=== PATIENT | male | born 1980 | race Two or more races ===

== ENCOUNTER 2019-05-23 03:51 | Emergency (ER) | payer MEDICAID ==
--- NOTE | 2019-05-23 04:26 | EDM.PDOC ---
ED HPI GENERAL MEDICAL PROBLEM - General Chief Complaint: ENT Problem Stated Complaint: FLU SYMPTOMS- SORE THROAT, COUGH Time Seen by Provider: 05/23/19 04:01 Source of Information: Reports: Patient History Limitations: Reports: No Limitations - History of Present Illness INITIAL COMMENTS - FREE TEXT/NARRATIVE: HISTORY OF PRESENT ILLNESS: Patient is a 39-year-old male who reports 3-day history of sore throat which he rates as 3 out of 10 in severity worse with swallowing. Has mild cough. No dyspnea or hemoptysis. Denies any fevers or chills. No chest pain or abdominal pain. No urinary symptoms. No known contact with strep. Denies any neck stiffness or rash. REVIEW OF SYSTEMS: Other than the symptoms associated with the present events, the following is reported with regard to recent health: General: (-) fever. HENT: (-) congestion. Respiratory: (-) cough. Cardiovascular: (-) chest pain. GI: (-) abdominal pain. : (-) urinary complaints. Musculoskeletal: (-) other aches or pains. Endocrine: (-) generalized weakness. Neurological: (-) localized weakness. Skin: (-) rash PAST MEDICAL HISTORY: reviewed as per nursing notes SOCIAL HISTORY: reviewed as per nursing notes, MEDICATIONS: Per nurse's note ALLERGIES: Per nurse's note, reviewed by me PHYSICAL EXAMINATION: GENERALIZED APPEARANCE: well developed, well nourished in mild distress VITAL SIGNS: Per nurse's note, reviewed by me SKIN: Warm, dry; (-) cyanosis; (-) rash. HEAD: (-) scalp swelling, (-) tenderness. EYES: (-) conjunctival pallor, (-) scleral icterus. ENMT: (-) stridor; mucous membranes moist. Pharyngeal erythema. No exudate. Uvula midline. No trismus. No phonation changes. Airway patent. NECK: (-) tenderness, (-) stiffness, CHEST AND RESPIRATORY: (-) rales, (-) rhonchi, (-) wheezes; breath sounds equal bilaterally. HEART AND CARDIOVASCULAR: (-) irregularity; (-) murmur, (-) gallop. ABDOMEN AND GI: Soft; (-) tenderness, (-) guarding, (-) rebound, (-) palpable masses, EXTREMITIES: (-) deformity, (-) edema. NEURO AND PSYCH: Alert. Cranial nerves grossly intact; strength symmetric. gait steady DIAGNOSTICS: strep positive EMERGENCY DEPARTMENT COURSE AND TREATMENT: Patient's condition remained stable during Emergency Department evaluation. Based on history, physical exam, and diagnostic evaluation, the patient has symptoms consistent with acute strep pharyngitis. There is no obvious swelling of the peritonsillar area or abscess. The airway appears patent and respiratory pattern is normal. The patient has no trismus and is tolerating oral food and fluid. I felt that outpatient management with close followup by the patient's primary care provider in 1-2 days was appropriate. The patient's questions were answered, and discharge precautions and reasons to return to the clinic were discussed. The patient understands to return to the ED if symptoms do not improve as discussed, or if symptoms worsen. PLAN AND FOLLOW-UP: Patient received written and verbal instructions regarding this condition. Return to ED immediately with any new or worsening symptoms. Follow up to be arranged by patient with pcp in 1-2 days for further evaluation. Given discharge precautions. patient expressed verbal understanding. - Related Data Allergies Allergy/AdvReac Type Severity Reaction Status Date / Time Penicillins Allergy Other Verified 05/23/19 04:02 Home Meds: Home Meds Azithromycin 250 mg PO DAILY 5 Days #6 tablet 05/23/19 [Rx] Past Medical History - Past Health History Medical/Surgical History: Denies Medical/Surgical History - Infectious Disease History Infectious Disease History: Reports: Chicken Pox Social & Family History - Family History Family Medical History: Noncontributory - Tobacco Use Smoking Status *Q: Never Smoker - Recreational Drug Use Recreational Drug Use: No ED ROS GENERAL - Review of Systems Review Of Systems: See Below (see dictation) ED EXAM, GENERAL - Physical Exam Exam: See Below (see dictation) Course - Vital Signs Last Recorded V/S: Last Vital Signs Temp 97.8 F 05/23/19 04:02 Pulse 88 05/23/19 04:02 Resp 18 05/23/19 04:02 BP 138/88 05/23/19 04:02 Pulse Ox 97 05/23/19 04:02 Departure - Departure Time of Disposition: 04:23 Disposition: Home, Self-Care 01 Condition: Good Clinical Impression: Strep pharyngitis - Discharge Information *PRESCRIPTION DRUG MONITORING PROGRAM REVIEWED*: Not Applicable *COPY OF PRESCRIPTION DRUG MONITORING REPORT IN PATIENT ABNER: Not Applicable Instructions: Strep Throat Referrals: PCP,None [Primary Care Provider] - Benton Maher [Ordering Only Provider] - 2 Days Additional Instructions: The following information is given to patients seen in the emergency department who are being discharged to home. This information is to outline your options for follow-up care. We provide all patients seen in our emergency department with a follow-up referral. The need for follow-up, as well as the timing and circumstances, are variable depending upon the specifics of your emergency department visit. If you don't have a primary care physician on staff, we will provide you with a referral. We always advise you to contact your personal physician following an emergency department visit to inform them of the circumstance of the visit and for follow-up with them and/or the need for any referrals to a consulting specialist. The emergency department will also refer you to a specialist when appropriate. This referral assures that you have the opportunity for follow-up care with a specialist. All of these measure are taken in an effort to provide you with optimal care, which includes your follow-up. Under all circumstances we always encourage you to contact your private physician who remains a resource for coordinating your care. When calling for follow-up care, please make the office aware that this follow-up is from your recent emergency room visit. If for any reason you are refused follow-up, please contact the [facility] Emergency Department at and asked to speak to the emergency department charge nurse. Sepsis Event Note - Evaluation Sepsis Screening Result: No Definite Risk - Focused Exam Vital Signs: Vital Signs Temp Pulse Resp BP Pulse Ox 05/23/19 04:02 97.8 F 88 18 138/88 97 Date Exam was Performed: 05/23/19 Time Exam was Performed: 04:21
== END 2019-05-23 04:37 | disposition home or self-care (01) ==
LOC: MW.ED 03:51
DX: J02.0 Streptococcal pharyngitis (principal); Z88.0 Allergy status to penicillin
CPT/HCPCS: 87880-QW; 99283

== ENCOUNTER 2020-12-10 12:04 | Emergency (ER) | payer MEDICAID ==
[2020-12-10] MEDS ORDERED: Sodium Chloride 0.9% 1,000 ML IV ONE (12:13)
--- NOTE | 2020-12-10 12:13 | EDM.PDOC ---
ED HPI GENERAL MEDICAL PROBLEM - General Chief Complaint: Abdominal Pain Stated Complaint: RIGHT SIDE PAIN DIZZY Time Seen by Provider: 12/10/20 12:13 Source of Information: Reports: Patient History Limitations: Reports: No Limitations - History of Present Illness INITIAL COMMENTS - FREE TEXT/NARRATIVE: HISTORY AND PHYSICAL: History of present illness: Patient is a 40-year-old male who presents to the emergency room with complaints of right lower quadrant pain. He initially was seen at the walk-in clinic but was recommended to come to the emergency room to rule out appendicitis. Patient denies any fever, chills, headache, change in vision, syncope or near syncope. Denies any chest pain, back pain, shortness of breath or cough. Denies any nausea, vomiting, diarrhea, constipation or dysuria. Has not noted any blood in urine or stool. Patient has been eating and drinking appropriately. No recent travel or sick contacts. Review of systems: As per history of present illness and below otherwise all systems reviewed and negative. Past medical history: As per history of present illness and as reviewed below otherwise noncontributory. Surgical history: As per history of present illness and as reviewed below otherwise noncontributory. Social history: See social history for further information Family history: As per history of present illness and as reviewed below otherwise noncontributory. Physical exam: General: Well developed and well nourished 40-year-old male. Alert and orientated x 3. Nontoxic in appearance and in no acute distress. Vital signs are stable and have been reviewed by me. Nursing notes were reviewed. HEENT: Atraumatic, normocephalic, pupils equal and reactive bilaterally, negative for conjunctival pallor or scleral icterus, mucous membranes moist, trachea midline. No drooling or trismus noted. No meningeal signs. No hot potato voice noted. Lungs: Clear to auscultation bilaterally. No wheezes, rales, or rhonchi. Chest nontender. Normal work of breathing, no accessory muscles used. Heart: S1S2, regular rate and rhythm without overt murmur, gallops, or rubs. No JVD. No peripheral edema Abdomen: Soft, nondistended, right lower quadrant and left lower quadrant tenderness. No rebound tenderness. Normoactive bowel sounds. Negative for masses or costovertebral tenderness. Skin: Intact, warm, dry. No lesions or rashes noted. Hematologic: No petechiae or purpra. Mucosa appropriate color and normal nail bed color and refill. Extremities: Atraumatic, moves all extremities per self without difficulty or deficits, negative for cords or calf pain. Neurovascular unremarkable. Neuro: Awake, alert, oriented. Cranial nerves II through XII unremarkable. Cerebellum unremarkable. Motor and sensory unremarkable throughout. Exam n onfocal. Psychiatric: Mood and affect are appropriate. Normal thought process. Answering questions appropriately. Please note that the patient was seen and evaluated during the 2019 SARS-CoV-2 novel coronavirus pandemic period. Community viral transmission is ongoing at time of this encounter and the emergency department is operating under pandemic response procedures. Medical Decision Making: Patient is a 40-year-old male who presents to the emergency room with complaints of right lower quadrant pain. Initially he had gone to the clinic, they referred him to the emergency room to rule out appendicitis. Patient does have left lower quadrant and right lower quadrant tenderness. No rebound tenderness. We will do basic lab work and likely a CT scan to rule out appendicitis. Patient's lab work is unremarkable. CT shows normal appearing appendix no inflammatory process right lower quadrant. No urinary tract stones or hydronephrosis. Colonic fecal retention involving the ascending colon. I have talked with the patient about today's findings, in addition to providing specific details for plan of care. Reassessment at the time of disposition demonstrates that the patient is in no acute distress. The patient is stable for discharge, counseling was provided and we discussed in great detail signs and symptoms that would prompt them to return to the Emergency Department. Medication, follow up and supportive care measures were reviewed and discussed. Voices understanding and is agreeable to plan of care. Denies any further questions or concerns at this time. Diagnostics: CBC, CMP, UA, lipase, CT abdomen and pelvis Therapeutics: IV fluid Prescription: None Impression: Abdominal pain Plan: 1. You were evaluated today on an emergent basis. Your lab work is normal. CT shows the appendix is normal as well. You do have a moderate amount of stool that can be causing your pain. Please take an [id number] laxative or start adding MiraLAX to your regiment to help have a bowel movement. 2. You can alternate Tylenol and ibuprofen as needed for pain and fever management. 3. We encourage you to follow up with your primary care provider and/or recommended specialist in the next few days for re-evaluation and further care/management. 4. If your symptoms should worsen, new symptoms develop or any of the signs and symptoms we discussed should arise please return to the emergency room or call 911 (if needed). Definitive disposition and diagnosis as appropriate pending reevaluation and review of above. - Related Data Allergies Allergy/AdvReac Type Severity Reaction Status Date / Time Penicillins Allergy Other Verified 12/10/20 12:22 Home Meds: Home Meds . [No Known Home Meds] 12/10/20 [History] Past Medical History - Past Health History Medical/Surgical History: Denies Medical/Surgical History - Infectious Disease History Infectious Disease History: Reports: Chicken Pox Social & Family History - Family History Family Medical History: No Pertinent Family History ED ROS GENERAL - Review of Systems Review Of Systems: Comprehensive ROS is negative, except as noted in HPI. ED EXAM, GI/ABD - Physical Exam Exam: See Below (See dictation) Course - Vital Signs Last Recorded V/S: Last Vital Signs Temp 97.2 F 12/10/20 12:19 Pulse 57 L 12/10/20 13:20 Resp 16 12/10/20 13:20 BP 120/71 12/10/20 13:20 Pulse Ox 97 12/10/20 13:20 - Orders/Labs/Meds Labs: Laboratory Tests 12/10/20 12/10/20 12/10/20 Range/Units 12:31 12:31 12:31 WBC 6.38 (4.0-11.0) K/uL RBC 4.84 (4.50-5.90) M/uL Hgb 16.4 (13.0-17.0) g/dL Hct 45.5 (38.0-50.0) % MCV 94.0 (80.0-98.0) fL MCH 33.9 H (27.0-32.0) pg MCHC 36.0 (31.0-37.0) g/dL RDW Std Deviation 43.3 (28.0-62.0) fl RDW Coeff of Rusty 13 (11.0-15.0) % Plt Count 185 (150-400) K/uL MPV 10.00 (7.40-12.00) fL Neut % (Auto) 66.1 (48.0-80.0) % Lymph % (Auto) 27.3 (16.0-40.0) % Desha % (Auto) 5.0 (0.0-15.0) % Eos % (Auto) 1.4 (0.0-7.0) % Baso % (Auto) 0.2 (0.0-1.5) % Neut # (Auto) 4.2 (1.4-5.7) K/uL Lymph # (Auto) 1.7 (0.6-2.4) K/uL Desha # (Auto) 0.3 (0.0-0.8) K/uL Eos # (Auto) 0.1 (0.0-0.7) K/uL Baso # (Auto) 0.0 (0.0-0.1) K/uL Nucleated RBC % 0.0 /100WBC Nucleated RBCs # 0 K/uL Sodium 138 (136-148) mmol/L Potassium 4.0 (3.5-5.1) mmol/L Chloride 100 (98-107) mmol/L Carbon Dioxide 28.3 (21.0-32.0) mmol/L BUN 15 (7.0-18.0) mg/dL Creatinine 1.0 (0.8-1.3) mg/dL Est Cr Clr Drug Dosing 99.18 mL/min Estimated GFR (MDRD) > 60.0 ml/min Glucose 87 (74-106) mg/dL Calcium 8.6 (8.5-10.1) mg/dL Total Bilirubin 1.0 (0.2-1.0) mg/dL AST 29 (15-37) IU/L ALT 68 H (14-63) IU/L Alkaline Phosphatase 56 (46-116) U/L Total Protein 8.2 (6.4-8.2) g/dL Albumin 4.2 (3.4-5.0) g/dL Globulin 4.0 (2.6-4.0) g/dL Albumin/Globulin Ratio 1.0 (0.9-1.6) Lipase 85 (73-393) U/L Urine Color YELLOW Urine Appearance CLEAR Urine pH 6.5 (5.0-8.0) Ur Specific Kathleen 1.020 (1.001-1.035) Urine Protein NEGATIVE (NEGATIVE) mg/dL Urine Glucose (UA) NEGATIVE (NEGATIVE) mg/dL Urine Ketones NEGATIVE (NEGATIVE) mg/dL Urine Occult Blood NEGATIVE (NEGATIVE) Urine Nitrite NEGATIVE (NEGATIVE) Urine Bilirubin NEGATIVE (NEGATIVE) Urine Urobilinogen 1.0 (<2.0) EU/dL Ur Leukocyte Esterase NEGATIVE (NEGATIVE) Meds: Medications Discontinued Medications Generic Name Dose Route Start Last Admin Trade Name Randolphq PRN Reason Stop Dose Admin Sodium Chloride 1,000 mls @ 999 mls/hr 12/10/20 12:13 12/10/20 12:32 Normal Saline IV 12/10/20 13:13 999 mls/hr STAT ONE Administration Iopamidol 100 ml 12/10/20 13:41 12/10/20 13:42 Iopamidol 755 Mg/Ml 500 Ml Multipack Bottle IVPUSH 12/10/20 13:42 100 ml ONETIME STA Administration Ketorolac Tromethamine 30 mg 12/10/20 13:09 12/10/20 13:16 Ketorolac 30 Mg/Ml Sdv IVPUSH 12/10/20 13:10 30 mg ONETIME ONE Administration Ondansetron HCl 4 mg 12/10/20 13:09 12/10/20 13:17 Ondansetron 4 Mg/2 Ml Sdv IVPUSH 12/10/20 13:10 4 mg ONETIME ONE Administration Departure - Departure Time of Disposition: 14:47 Disposition: Home, Self-Care 01 Clinical Impression: Abdominal pain Qualifiers: Abdominal location: right lower quadrant Qualified Code(s): R10.31 - Right lower quadrant pain - Discharge Information Instructions: Abdominal Pain, Adult, [id number]-[id number] Referrals: Haydee Summers NP [Primary Care Provider] - Forms: ED Department Discharge Additional Instructions: The following information is given to patients seen in the emergency department who are being discharged to home. This information is to outline your options for follow-up care. We provide all patients seen in our emergency department with a follow-up referral. The need for follow-up, as well as the timing and circumstances, are variable depending upon the specifics of your emergency department visit. If you don't have a primary care physician on staff, we will provide you with a referral. We always advise you to contact your personal physician following an emergency department visit to inform them of the circumstance of the visit and for follow-up with them and/or the need for any referrals to a consulting specialist. The emergency department will also refer you to a specialist when appropriate. This referral assures that you have the opportunity for follow-up care with a specialist. All of these measure are taken in an effort to provide you with optimal care, which includes your follow-up. Under all circumstances we always encourage you to contact your private physician who remains a resource for coordinating your care. When calling for follow-up care, please make the office aware that this follow-up is from your recent emergency room visit. If for any reason you are refused follow-up, please contact the [facility] Emergency Department at and asked to speak to the emergency department charge nurse. [facility] [address] [place] [id number] [place] [address] Thank you for choosing the [facility] emergency department in [place] for your medical needs today. It was a pleasure caring for you. Today you were seen in the emergency department for abdominal pain. 1. You were evaluated today on an emergent basis. Your lab work is normal. CT shows the appendix is normal as well. You do have a moderate amount of stool that can be causing your pain. Please take an [id number] laxative or start adding MiraLAX to your regiment to help have a bowel movement. 2. You can alternate Tylenol and ibuprofen as needed for pain and fever management. 3. We encourage you to follow up with your primary care provider and/or recommended specialist in the next few days for re-evaluation and further care/management. 4. If your symptoms should worsen, new symptoms develop or any of the signs and symptoms we discussed should arise please return to the emergency room or call 911 (if needed). Sepsis Event Note (ED) - Focused Exam Vital Signs: Vital Signs Temp Pulse Resp BP Pulse Ox 12/10/20 13:20 57 L 16 120/71 97 12/10/20 12:19 97.2 F 65 16 134/78 99
[2020-12-10] MEDS ORDERED: Ketorolac 30 MG/ML SDV IVPUSH ONE (13:09)
[2020-12-10] MEDS ORDERED: Ondansetron 4 MG/2 ML SDV IVPUSH ONE (13:09)
[2020-12-10 13:16] LABS: BLOOD UREA NITROGEN,BUN 15 mg/dL (7.0-18.0); CARBON DIOXIDE,CO2 28.3 mmol/L (21.0-32.0); CHLORIDE,CL 100 mmol/L (98-107); GLUCOSE RANDOM 87 mg/dL (74-106); LIPASE 85 U/L (73-393); SODIUM,NA 138 mmol/L (136-148)
[2020-12-10] MEDS ORDERED: Iopamidol 755 MG/ML 500 ML Multipack Bottle IVPUSH STA (13:41)
--- NOTE | 2020-12-10 14:43 | CT ---
INDICATION: Right upper quadrant pain TECHNIQUE: CT abdomen and pelvis acquired with IV contrast. 100 cc Isovue 370 COMPARISON: None FINDINGS: Lower chest: Unremarkable. Liver: Unremarkable. Spleen: Unremarkable. Pancreas: Unremarkable. Gallbladder and bile ducts: Unremarkable. Kidneys: Unremarkable. Adrenal glands: Unremarkable. GI tract: Colonic fecal retention of the ascending colon.. Appendix is normal. Vascular structures: Unremarkable. Lymph nodes: Unremarkable. Miscellaneous: Unremarkable. No free air or significant free fluid. Pelvic Organs: Unremarkable. Bones: Unremarkable for age. IMPRESSION: Normal appearing appendix no inflammatory process right lower quadrant. No urinary tract stones or hydronephrosis. Colonic fecal retention involving the ascending colon. Please note that all CT scans at this facility use dose modulation, iterative reconstruction, and/or weight-based dosing when appropriate to reduce radiation dose to as low as reasonably achievable. Dictated by Darren Vaughn MD @ 12/10/2020 2:41:21 PM (Electronically Signed)
== END 2020-12-10 14:58 | disposition home or self-care (01) ==
LOC: MW.ED 12:04
DX: R10.31 Right lower quadrant pain (principal); R10.32 Left lower quadrant pain; Z88.0 Allergy status to penicillin
CPT/HCPCS: 36415; 74177; 80053; 81003; 83690; 85025; 96374; 96375; 99284; J1885; J2405; J7030; Q9967

== ENCOUNTER 2021-09-30 11:43 | Emergency (ER) | payer MEDICAID ==
[2021-09-30] MEDS ORDERED: Aspirin 81 MG Tab.Chew PO ONE (12:41)
[2021-09-30 13:29] LABS: CARBON DIOXIDE,CO2 28.4 mmol/L (21.0-32.0); POTASSIUM,K 4.1 mmol/L (3.5-5.1)
[2021-09-30] MEDS ORDERED: Heparin Sodium 5,000 Units/ML Vial IVPUSH STA (13:49)
[2021-09-30] MEDS ORDERED: Heparin Sodium/0.45% NaCl 500 ML IV SCH (14:00)
== END 2021-09-30 14:11 ==
LOC: MW.ED 11:43
DX: I21.4 Non-ST elevation (NSTEMI) myocardial infarction (principal); Z88.0 Allergy status to penicillin; Z20.822 Contact with and (suspected) exposure to COVID-19; Z86.16 Personal history of COVID-19
CPT/HCPCS: 36415; 71045; 80053; 83735; 84484; 85025; 87635; 93005; 96374; 99285; A9270; J1644; 93010; 99291; 99292; U0002

== ENCOUNTER 2022-01-30 15:37 | Emergency (ER) | payer MEDICAID ==
[2022-01-30] MEDS ORDERED: Sodium Chloride 0.9% 10 ML Syringe FLUSH PRN (16:02)
[2022-01-30] MEDS ORDERED: Sodium Chloride 0.9% 1,000 ML IV ONE (16:02)
[2022-01-30] MEDS ORDERED: Sodium Chloride 0.9% 2.5 ML Syringe FLUSH PRN (16:02)
[2022-01-30] MEDS ORDERED: LORazepam 2 MG/ML SDV IVPUSH ONE (16:02)
[2022-01-30] MEDS ORDERED: Diltiazem 25 MG/5 ML SDV IVPUSH ONE (16:29)
[2022-01-30] MEDS ORDERED: Diltiazem 100 MG in Sodium Chloride 0.9% 100 ML IV SCH (16:30)
[2022-01-30 16:52] LABS: BLOOD UREA NITROGEN,BUN 15 mg/dL (7.0-18.0); CARBON DIOXIDE,CO2 25.7 mmol/L (21.0-32.0); CHLORIDE,CL 102 mmol/L (98-107); GLUCOSE RANDOM 156 mg/dL (74-106); POTASSIUM,K 3.9 mmol/L (3.5-5.1); SODIUM,NA 139 mmol/L (136-148)
[2022-01-30 16:58] LABS: ESTIMATED GFR 86 mL/min (>60)
== END 2022-01-30 20:05 ==
LOC: MW.ED 15:37
DX: I48.91 Unspecified atrial fibrillation (principal); E10.9 Type 1 diabetes mellitus without complications; Z88.0 Allergy status to penicillin; Z86.16 Personal history of COVID-19; Z20.822 Contact with and (suspected) exposure to COVID-19
CPT/HCPCS: 36415; 71045; 80053; 80305; 80307; 81003; 83880; 84443; 84484; 85025; 85610; 85730; 87635; 96361; 96365; 96366; 96376; 99285; J2060; J3490; J7030; U0002

== ENCOUNTER 2022-08-09 13:28 | Emergency (ER) | payer MEDICAID ==
[2022-08-09] MEDS ORDERED: Lidocaine 1% 5 ML VIAL INJECT ONE (14:35)
== END 2022-08-09 15:31 | disposition home or self-care (01) ==
LOC: MW.ED 13:28
DX: L02.416 Cutaneous abscess of left lower limb (principal); L03.116 Cellulitis of left lower limb; Z88.0 Allergy status to penicillin; Z86.16 Personal history of COVID-19
CPT/HCPCS: 10060; 10061; 99283; J3490

== ENCOUNTER 2023-09-03 14:19 | Emergency (ER) | payer BC ==
[2023-09-03] MEDS: Sodium Chloride 0.9% 1,000 ML IV STA (14:58)
[2023-09-03] MEDS: Sodium Chloride 0.9% 10 ML Syringe FLUSH PRN (14:59)
[2023-09-03] MEDS: Sodium Chloride 0.9% 2.5 ML Syringe FLUSH PRN (14:59)
[2023-09-03 15:03] LABS: BASOPHILS ABSOLUTE AUTO 0.02 K/uL (0.00-0.20); BASOPHILS PERCENT AUTO 0.3 % (0.0-1.0); EOSINOPHILS ABSOLUTE AUTO 0.15 K/uL (0.00-0.45); EOSINOPHILS PERCENT AUTO 2.6 % (0.0-6.0); HEMATOCRIT 42.2 % (42.0-52.0); HEMOGLOBIN 15.2 g/dL (14.0-18.0); IMMATURE GRAN ABSOLUTE AUTO 0.01 K/uL (0.00-0.05); IMMATURE GRAN PERCENT AUTO 0.2 % (0.0-0.4); LYMPHOCYTES ABSOLUTE AUTO 1.77 K/uL (1.00-4.80); LYMPHOCYTES PERCENT AUTO 30.8 % (24.0-44.0); MEAN CORPUSCULAR HEMOGLOBIN 32.1 pg (28.0-32.0); MEAN PLATELET VOLUME 9.5 fL (9.4-12.4); MONOCYTES ABSOLUTE AUTO 0.41 K/uL (0.00-0.80); MONOCYTES PERCENT AUTO 7.1 % (0.0-8.0); NEUTROPHILS ABSOLUTE AUTO 3.39 K/uL (1.80-7.70); PLATELET COUNT,PLT 179 K/uL (150-400); RED BLOOD CELL COUNT 4.74 M/uL (4.52-5.90); WHITE BLOOD CELL COUNT,WBC 5.75 K/uL (3.9-11.3)
[2023-09-03 15:31] LABS: A/G RATIO 1.1 (0.9-1.6); ALBUMIN 3.8 g/dL (3.4-5.0); BILIRUBIN TOTAL 0.8 mg/dL (0.2-1.0); CALCIUM 8.6 mg/dL (8.5-10.1); CARBON DIOXIDE,CO2 27.7 mmol/L (21.0-32.0); CREATININE 1.1 mg/dL (0.8-1.3); EST CRCL DRUG DOSING (CG) 78.94 mL/min; POTASSIUM,K 3.6 mmol/L (3.5-5.1); PROTEIN TOTAL,TP 7.2 g/dL (6.4-8.2)
[2023-09-03] MEDS: Aspirin 81 MG Tab.Chew PO ONE (17:34)
== END 2023-09-03 18:05 | disposition left against medical advice (07) ==
LOC: MW.ED 14:19
DX: I21.4 Non-ST elevation (NSTEMI) myocardial infarction (principal); Z86.16 Personal history of COVID-19; Z88.0 Allergy status to penicillin
CPT/HCPCS: 36415; 71046; 80053; 84484; 85025; 93005; 99285; A9270; J3490; J7030